=== PATIENT | female | born 1995 | race Hispanic/Latino ===

== ENCOUNTER 2020-08-31 08:46 | Observation (INO) | payer OTHER ==
[2020-08-31 09:44] LABS: Absolute Lymphocytes (CBC) 1.9 K/uL (0.7-4.9); Basophils % 0.2 % (0-1.3); Hematocrit 37.3 % (36.0-45.0); Lymphocytes % 13.7 % (15.3-44.8); MPV 9.1 fL (7.6-11.3); RBC Red Blood Cell Count 4.64 M/uL (3.86-4.86)
[2020-08-31] MEDS ORDERED: NA CHLORIDE 0.9% 1,000 ML ONE (09:53)
[2020-08-31] MEDS ORDERED: ONDANSETRON 4 MG/2 ML VIAL ONE ×2 (09:53→13:08)
[2020-08-31] MEDS ORDERED: DICYCLOMINE HCL 20 MG/2 ML AMP IM ONE (09:53)
[2020-08-31] MEDS ORDERED: DIPHENHYDRAMINE 50 MG/ML VIAL ONE (09:53)
[2020-08-31 09:59] LABS: Urine Blood TRACE (NEG); Urine Glucose NEGATIVE (NEG); Urine Protein NEGATIVE (NEG); Urine Specific Gravity >1.030 (1.005-1.030)
--- NOTE | 2020-08-31 10:15 | RAD REPORT ---
EXAM DESCRIPTION: CT - Abdomen Pelvis W Contrast - 08/31/2020 10:00 am CLINICAL HISTORY: Abdominal pain COMPARISON: none. TECHNIQUE: Computed axial tomography of the abdomen pelvis was obtained. 100 cc Isovue-300 was admin istered intravenously. Oral contrast was not requested which limits evaluation of bowel. All CT scans are performed using dose optimization technique as appropriate and may include automated exposure control or mA/KV adjustment according to patient size. FINDINGS: The liver, spleen, pancreas, adrenal and kidneys appear unremarkable. There is no evidence of diverticulitis. 24 millimeter appendicolith. The appendix is dilated with stranding in the adjacent fat. The proximal appendix extends inferiorly and to the left towards midline. The distal appendix extends superiorly. Small amount of ascites IMPRESSION: Appendicitis
[2020-08-31 10:18] LABS: ALT/SGPT 26 U/L (12-78); AST/SGOT 14 U/L (15-37); Albumin 3.7 g/dL (3.4-5.0); Alkaline Phosphatase 81 U/L (45-117); BUN Blood Urea Nitrogen 7 mg/dL (7-18); Bicarbonate 28 mmol/L (21-32); Bilirubin Direct < 0.1 mg/dL (0-0.2); Bilirubin Total 0.4 mg/dL (0.2-1.0); Glucose Level 102 mg/dL (74-106); Lipase 55 U/L (73-393); Sodium Level 141 mmol/L (136-145)
--- NOTE | 2020-08-31 10:57 | ER ---
Nurse's Notes [facility] Name: Kavitha Haskins Age: 25 yrs Sex: Female : 1995 Arrival Date: 08/31/2020 Time: 08:49 Bed 19 Private MD: Diagnosis: Acute appendicitis Presentation: 08/31 09:03 Chief complaint: Patient states: Started having pain in her lower abdomen a couple days rb3 ago, but the pain increased last night. Coronavirus screen: At this time, the client does not indicate any symptoms associated with coronavirus-19. Ebola Screen: Patient denies travel to an Ebola-affected area in the 21 days before illness onset. Initial Sepsis Screen: Does the patient meet any 2 criteria? No. Patient's initial sepsis screen is negative. Does the patient have a suspected source of infection? No. Patient's initial sepsis screen is negative. Risk Assessment: Do you want to hurt yourself or someone else? Patient reports no desire to harm self or others. Onset of symptoms was August 29, 2020. 09:03 Method Of Arrival: Ambulatory rb3 09:03 Acuity: DAREK 3 rb3 Triage Assessment: 09:03 General: Appears in no apparent distress. comfortable, Behavior is calm, cooperative. rb3 Pain: Complains of pain in suprapubic area, right lower quadrant and left lower quadrant Pain currently is 7 out of 10 on a pain scale. Pain began last night. Neuro: Level of Consciousness is awake, alert, obeys commands, Oriented to person, place, time, situation. Cardiovascular: Capillary refill < 3 seconds. Respiratory: Airway is patent Respiratory effort is even, unlabored, Respiratory pattern is regular, symmetrical. : No signs and/or symptoms were reported regarding the genitourinary system. Derm: Skin is pink, warm \T\ dry. 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 reports menstral cycle is irregular rb3 Historical: - Allergies: 09:03 No Known Allergies; rb3 - Home Meds: 09:03 None [Active]; rb3 - PMHx: 09:03 None; rb3 - PSHx: 09:03 oral-wisdom teeth extracted; rb3 - Immunization history:: Adult Immunizations up to date. - Social history:: Smoking status: Patient/guardian denies using. Screenin:03 Abuse screen: Denies threats or abuse. Nutritional screening: No deficits noted. rb3 Tuberculosis screening: No symptoms or risk factors identified. Fall Risk None identified. Assessment: 09:03 General: See triage assessment. rb3 09:03 GI: Bowel sounds present X 4 quads. Abd is soft Abdomen is tender to palpation in right rb3 lower quadrant. 09:44 Reassessment: Patient appears in no apparent distress at this time. No changes from rb3 previously documented assessment. 10:17 Reassessment: Patient appears in no apparent distress at this time. Patient and/or rb3 family updated on plan of care and expected duration. Pain level reassessed. Patient is alert, oriented x 3, equal unlabored respirations, skin warm/dry/pink. 11:15 Reassessment: Patient appears in no apparent distress at this time. Patient and/or rb3 family updated on plan of care and expected duration. Pain level reassessed. Patient is alert, oriented x 3, equal unlabored respirations, skin warm/dry/pink. Family at the bedside. 12:10 Reassessment: Pt. requested something for pain; provider notified. Received verbal rb3 order for Morphine 4 mg IVP x once. 100% read back. 12:22 Reassessment: Patient appears in no apparent distress at this time. Pt. is leaving for rb3 surgery. Vital Signs: 09:17 BP 121 / 78; Pulse 100; Resp 18; Temp 98.0(O); Pulse Ox 100% on R/A; Weight 124.74 kg; 5 Height 5 ft. 6 in. (167.64 cm); Pain 4/10; 10:17 BP 121 / 75; Pulse 97; Resp 17; Pulse Ox 100% ; rb3 11:17 BP 108 / 70; Pulse 92; Resp 16; Pulse Ox 99% ; rb3 12:15 BP 127 / 86; Pulse 89; Resp 17; Pulse Ox 100% ; rb3 09:17 Body Mass Index 44.39 (124.74 kg, 167.64 cm) [facility] ED Course: 08:49 Patient arrived in ED. ag5 08:55 Ramakrishna Grewal PA is PHCP. cp 08:55 Garry Vargas MD is Attending Physician. cp 09:03 Arm band placed on right wrist. rb3 09:20 Augustine, Brandi, RN is Primary Nurse. iw 09:20 Patient has correct armband on for positive identification. Placed in gown. Bed in low mh5 position. Call light in reach. Side rails up X 1. Adult w/ patient. Warm blanket given. Pulse ox on. NIBP on. 09:21 Urine --Ancillary (enter results) Sent. mh5 09:21 Urine Dipstick--Ancillary (enter results) Sent. mh5 09:35 Inserted saline lock: 20 gauge in left antecubital area, using aseptic technique. iw ,using aseptic technique. inserted by student and instructor. Blood collected. 09:56 Triage completed. rb3 10:00 CT Abd/Pelvis - IV Contrast Only In Process Unspecified. EDMS 10:56 Paras Berry MD is Hospitalizing Provider. cp 12:23 No provider procedures requiring assistance completed. Patient admitted, IV remains in rb3 place. Administered Medications: 09:53 Drug: Bentyl 20 mg Route: IM; Site: right gluteus; rb3 10:17 Follow up: Response: No adverse reaction rb3 09:53 Drug: Zofran (Ondansetron) 4 mg Route: IVP; Site: right antecubital; rb3 10:17 Follow up: Response: No adverse reaction; Nausea is decreased rb3 09:53 Drug: Benadryl 12.5 mg Route: IM; Site: right deltoid; rb3 10:17 Follow up: Response: No adverse reaction rb3 09:54 Drug: NS 0.9% 1000 ml Route: IV; Rate: 1 bolus; Site: right antecubital; rb3 12:02 Follow up: IV Status: Completed infusion rb3 11:08 Drug: Zosyn 3.375 grams Route: IVPB; Infused Over: 60 mins; Site: right antecubital; rb3 12:16 Drug: morphine 4 mg Route: IVP; Site: right antecubital; rb3 12:22 Follow up: Response: No adverse reaction rb3 Outcome: 10:57 Decision to Hospitalize by Provider. cp 12:23 Admitted to OR accompanied by nurse, family with patient, via wheelchair, with chart. rb3 12:23 Condition: stable 12:23 Instructed on the need for admit. 12:24 Patient left the ED. rb3 Signatures: Dispatcher [employer] EDMS Brandi Bradshaw, RN RN Ramakrishna uZrita PA PA cp Martinez, Maria 5 Felicita Carrasco 5 Leslie Funes, FRANCESCO RN rb3 Corrections: (The following items were deleted from the chart) 11:16 09:53 Benadryl 12.5 mg IM in right deltoid rb3 rb3 11:16 11:15 BP 118 / 77; Pulse 87 bpm; Resp 17 bpm; Pulse Ox 100% rb3 rb3
--- NOTE | 2020-08-31 10:58 | EDPHYS ---
Physician Documentation [facility] Name: Kavitha Haskins Age: 25 yrs Sex: Female : 1995 Arrival Date: 08/31/2020 Time: 08:49 Bed 19 Private MD: ED Physician Garry Vargas HPI: 08/31 09:05 This 25 yrs old Female presents to ER via Ambulatory with complaints of cp Abdominal Pain. 09:05 The patient presents with abdominal pain in the lower abdomen. Onset: The cp symptoms/episode began/occurred 2 day(s) ago. The symptoms do not radiate. Associated signs and symptoms: Pertinent negatives: blood in stools, constipation, diarrhea, dysuria, fever, vaginal discharge, vomiting. Severity of pain: in the emergency department the pain is unchanged despite home interventions. 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 reports menstral cycle is irregular rb3 Historical: - Allergies: 09:03 No Known Allergies; rb3 - Home Meds: 09:03 None [Active]; rb3 - PMHx: 09:03 None; rb3 - PSHx: 09:03 oral-wisdom teeth extracted; rb3 - Immunization history:: Adult Immunizations up to date. - Social history:: Smoking status: Patient/guardian denies using. ROS: 09:10 Constitutional: Negative for body aches, chills, fever, poor PO intake. cp 09:10 Eyes: Negative for injury, pain, redness, and discharge. cp 09:10 ENT: Negative for ear pain, sore throat, difficulty swallowing, difficulty handling secretions. 09:10 Cardiovascular: Negative for chest pain, palpitations. 09:10 Respiratory: Negative for cough, shortness of breath, wheezing. 09:10 Abdomen/GI: Positive for abdominal pain, Negative for vomiting, diarrhea, constipation, black/tarry stool, rectal bleeding. 09:10 Back: Negative for radiated pain. 09:10 : Negative for urinary symptoms, vaginal bleeding, vaginal discharge. 09:10 All other systems are negative. Exam: 09:15 Constitutional: The patient appears in no acute distress, alert, awake, non-toxic, well cp developed, well nourished, obese. 09:15 Head/Face: Normocephalic, atraumatic. cp 09:15 Eyes: Periorbital structures: appear normal, Conjunctiva: normal, no exudate, no injection, Sclera: no appreciated abnormality, Lids and lashes: appear normal, bilaterally. 09:15 ENT: External ear(s): are unremarkable, Nose: is normal, Posterior pharynx: Airway: no evidence of obstruction, patent. 09:15 Chest/axilla: Inspection: normal, Palpation: is normal, no crepitus, no tenderness. 09:15 Cardiovascular: Rate: tachycardic, Rhythm: regular. 09:15 Respiratory: the patient does not display signs of respiratory distress, Respirations: normal, no use of accessory muscles, no retractions, labored breathing, is not present, Breath sounds: are clear throughout, no decreased breath sounds. 09:15 Abdomen/GI: Inspection: abdomen appears normal, Bowel sounds: active, all quadrants, Palpation: soft, in all quadrants, moderate abdominal tenderness, in the suprapubic area and right lower quadrant, rebound tenderness, is not appreciated, voluntary guarding, is elicited in the right lower quadrant. 09:15 Back: pain, is absent, ROM is normal. Vital Signs: 09:17 BP 121 / 78; Pulse 100; Resp 18; Temp 98.0(O); Pulse Ox 100% on R/A; Weight 124.74 kg; mh5 Height 5 ft. 6 in. (167.64 cm); Pain 4/10; 10:17 BP 121 / 75; Pulse 97; Resp 17; Pulse Ox 100% ; rb3 11:17 BP 108 / 70; Pulse 92; Resp 16; Pulse Ox 99% ; rb3 12:15 BP 127 / 86; Pulse 89; Resp 17; Pulse Ox 100% ; rb3 09:17 Body Mass Index 44.39 (124.74 kg, 167.64 cm) [facility] MDM: 09:02 Patient medically screened. cp 10:00 Differential diagnosis: appendicitis, cholecystitis, Cholelithiasis, Ectopic , cp gastritis, non-specific abd pain, Ovarian Torsion, Pelvic Inflammatory Disease, Pyelonephritis, Ureterolithiasis, urinary tract infection. 10:40 Data reviewed: vital signs, nurses notes, lab test result(s), radiologic studies, CT cp scan, and as a result, I will admit patient. 10:40 Counseling: I had a detailed discussion with the patient and/or guardian regarding: the cp historical points, exam findings, and any diagnostic results supporting the discharge/admit diagnosis, lab results, radiology results, the need for further work-up and treatment in the hospital. 11:00 Physician consultation: Paras Berry MD was called at 10:55, was contacted at 10:55, regarding admission, to the operating room, patient's condition. 08/31 09:17 Order name: Urine Dipstick--Ancillary (enter results); Complete Time: 10:35 em1 08/31 10:35 Interpretation: Normal except: UBLD TRACE; UESTR TRACE. 08/31 09:17 Order name: Urine --Ancillary (enter results); Complete Time: 10:35 em1 08/31 09:19 Order name: Basic Metabolic Panel; Complete Time: 10:35 08/31 09:19 Order name: CBC with Diff; Complete Time: 10:35 08/31 10:35 Interpretation: Normal except: WBC 13.6; HELEN% 80.7; LYM% 13.7; NEUT A 11.0. 08/31 09:19 Order name: Hepatic Function; Complete Time: 10:35 cp 08/31 09:19 Order name: Lipase; Complete Time: 10:35 08/31 10:36 Interpretation: Reviewed. 08/31 09:19 Order name: CT Abd/Pelvis - IV Contrast Only; Complete Time: 10:35 08/31 10:41 Order name: CREATININE WHOLE BLOOD; Complete Time: 10:56 EDMS 08/31 09:02 Order name: Urine Dipstick-Ancillary (obtain specimen); Complete Time: 09:16 cp 08/31 09:02 Order name: Urine Test (obtain specimen); Complete Time: 09:16 cp 08/31 09:19 Order name: IV Saline Lock; Complete Time: 09:54 cp 08/31 09:19 Order name: Labs collected and sent; Complete Time: 09:54 cp 08/31 10:40 Order name: NPO; Complete Time: 11:14 cp Administered Medications: 09:53 Drug: Bentyl 20 mg Route: IM; Site: right gluteus; rb3 10:17 Follow up: Response: No adverse reaction rb3 09:53 Drug: Zofran (Ondansetron) 4 mg Route: IVP; Site: right antecubital; rb3 10:17 Follow up: Response: No adverse reaction; Nausea is decreased rb3 09:53 Drug: Benadryl 12.5 mg Route: IM; Site: right deltoid; rb3 10:17 Follow up: Response: No adverse reaction rb3 09:54 Drug: NS 0.9% 1000 ml Route: IV; Rate: 1 bolus; Site: right antecubital; rb3 12:02 Follow up: IV Status: Completed infusion rb3 11:08 Drug: Zosyn 3.375 grams Route: IVPB; Infused Over: 60 mins; Site: right antecubital; rb3 12:16 Drug: morphine 4 mg Route: IVP; Site: right antecubital; rb3 12:22 Follow up: Response: No adverse reaction rb3 Disposition: 09/01 07:12 Co-signature as Attending Physician, Garry Vargas MD I agree with the assessment and kdr plan of care. Disposition: 08/31/20 10:57 Hospitalization ordered by Paras Berry for Observation. Preliminary diagnosis is Acute appendicitis. - Bed requested for Operating Room. - Status is Observation. rb3 - Condition is Stable. - Problem is new. - Symptoms have improved. Signatures: Dispatcher [employer] EDMS Garry Vargas MD MD kdr Ramakrishna Grewal PA PA cp Barber, Rebecca RN RN rb3 Corrections: (The following items were deleted from the chart) 08/31 12:24 10:57 Hospitalization Ordered by Paras Berry MD for Observation. Preliminary rb3 diagnosis is Acute appendicitis. Bed requested for Operating Room. Status is Observation. Condition is Stable. Problem is new. Symptoms have improved. cp
[2020-08-31] MEDS ORDERED: PIPER/TAZO/NS 3.375gm 3.375 GM/100 ML BAG ONE (11:09)
[2020-08-31] MEDS ORDERED: MORPHINE 4 MG/ML SYR ONE (12:22)
[2020-08-31] MEDS ORDERED: Ringers Lactate 1,000 ML IV ONE (12:45)
[2020-08-31] MEDS ORDERED: LIDOCAINE 1% MPF 5 ML VIAL ONE (12:48)
[2020-08-31] MEDS ORDERED: ROCURONIUM 50 MG/5 ML VIAL IV ONE (12:48)
[2020-08-31] MEDS ORDERED: MIDAZOLAM HCL 2 MG/2 ML INJ ONE (12:48)
[2020-08-31] MEDS ORDERED: propofoL 200 MG/20 ML VIAL IV ONE (12:48)
[2020-08-31] MEDS ORDERED: FENTANYL CITR 100 MCG/2 ML ONE ×2 (12:48→13:27)
[2020-08-31] MEDS ORDERED: SUCCINYLCHOLINE 20 MG/ML (10 ML) IV ONE (12:58)
[2020-08-31] MEDS ORDERED: dexAMETHasone 4 MG/ML VIAL ONE (13:08)
[2020-08-31] MEDS ORDERED: KETOROLAC 30 MG/ML INJ ONE (13:08)
[2020-08-31] MEDS ORDERED: GLYCOPYRROLATE 0.2 MG/ML SYR ONE (13:27)
[2020-08-31] MEDS ORDERED: NEOSTIGMINE 1 MG/ML -5 ML ONE (13:27)
[2020-08-31] MEDS ORDERED: SODIUM CHLORIDE 0.9% 10ML INJ IV PRN (13:37)
[2020-08-31] MEDS ORDERED: HYDROCODONE/APAP 7.5/325 MG TAB PO PRN (13:37)
[2020-08-31] MEDS ORDERED: ONDANSETRON 4 MG/2 ML VIAL IV PRN (13:37)
--- NOTE | 2020-08-31 13:55 | P.BOP ---
Preoperative diagnosis: acute appendicititis, peritonitis Postoperative diagnosis: same Primary procedure: Laparoscopic appendectomy Supervisor Furnace Process: Sherley Bland (Pete) Estimated blood loss: <10cc Specimen: doe Findings: as above Anesthesia: General Complications: None Transferred to: Recovery Room Condition: Good
--- NOTE | 2020-08-31 14:18 | HP ---
Date of Admission: 08/31/2020 Diagnosis: Peritonitis, acute right lower quadrant pain. History Of Present Illness: This is the case of a 25-year-old patient with 2 days of periumbilical r ight upper quadrant pain, today got worse to the point that she came to the ER with nausea, vomiting. No dysuria, hematuria, hematochezia, melena. No recent traveling out of the country. No family me mber sick at home. Review of Systems: No shortness of breath. No chest pain. No fever. Ten points otherwise unremarkable. Past Medical History: Morbid obesity. Allergies: NONE. Past Surgical History: Includes wisdom teeth removal 2 weeks ago. Medications: None. Physical Examination: General: The patient is awake, alert. HEENT: Pupils are equal and reactive. Anicteric. Neck: Supple. Chest: Clear. Abdomen: Periumbilical right lower quadrant tenderness with Rovsing sign and psoas sign positive. P eritonitis present. Breasts: Deferred. Rectal: Deferred. Pelvic: Deferred. Extremities: Good capillary refill. Neurologic: Cranial nerves 2 through 12 grossly within normal limits. Laboratory Data: WBC count 13.6, hemoglobin of 12.6, potassium is 4.0. CAT scan of the abdomen and pelvis interpreted by Dr. Damon as acute appendicitis. Assessment And Plan: This is the case of a 25-year-old patient with acute appendicitis. Benefits, a lternatives, and risks of laparoscopic possible open appendectomy were fully explained, which include , but not limited to infection, bleeding, damage to adjacent structures, anesthesia complication, abs cess, hematoma, [place], and even . She also understands this may not relieve symptoms. She might n eed more than one surgical intervention. She states she has weakness and she is refusing any surgica l intervention. She understands the risks of dying without any blood transfusion if needed. She is very secured about her beliefs. She signed the consent and the OR was emergently called. SANTIAGO/IVAN Voice ID: [id number]
--- NOTE | 2020-08-31 14:48 | OP ---
Date of Procedure: 08/31/2020 Surgeon: Paras Berry MD Preoperative Diagnoses: Acute appendicitis, obesity, peritonitis. Postoperative Diagnoses: Acute appendicitis, obesity, peritonitis. Procedure: Laparoscopic appendectomy. Anesthesia: General plus local. Indications: This is the case of a 25-year-old patient, comes to us with acute appendicitis. Benefi ts, alternatives, and risks of laparoscopic possible open appendectomy fully explained which include, but not limited to infection, bleeding, damage to adjacent structures, anesthesia complications, MD, and even . She also understands this may not relieve symptoms. She might need more than one s urgical intervention. She understood, signed a consent. OR was immediately called. Procedure In Detail: The patient was brought to the operating room and placed supine position. Anes thesia was done without complication. Abdominal area was prepped and draped in a sterile fashion. L ocal anesthesia was applied followed by sharp incision of the skin in the infraumbilical region. Inc ision was carried down to fascia, which was opened under direct vision. Peritoneum was encountered, opened under direct vision. Vicryl #1 placed inside the fascia. Dee trocar was carefully introdu kate. No bleeding was obtained. I placed 2 more trocars 5 mm, each one of them in the suprapubic and left lower quadrant under direct visualization. This allowed me to place the patient in Trendelenbu rg position right side up and we visualized the area of the appendix to be inflamed. The base of the appendix seemed to be spared from the inflammation, so we created a window in the base of the append ix, transected that with Endo MATIAS 45 mm 3.5 and the mesoappendix with an Endo MATIAS 45 mm 2.5 x 2. Fur ther hemostasis was obtained with the help of hemoclips 5 mm. Appendix was removed from abdominal ca vity using EndoCatch through the umbilical incision. The area was profusely irrigated and then sucti oned. We checked for any bleeding or any bowel leak and none was found. So at that moment, I procee ded to remove the trocars under direct vision. Deflated the pneumoperitoneum. Closed the fascia wit h #1 Vicryl. Irrigated subcutaneous tissue, closed with 3-0 chromic and skin in a subcuticular fashi on with 3-0 chromic and Steri-Strips on top. Sponge count, instrument counts were correct. The sherman ent tolerated the procedure well. The patient was sent to recovery in stable condition. SANTIAGO/MODMichael Voice ID: [id number] Report ID: [id number]
[2020-08-31 15:11] VITALS: BMI 44.4
[2020-08-31] MEDS: NA CHLORIDE 0.9% 1,000 ML IV SCH (15:12)
[2020-08-31] MEDS: MORPHINE 2 MG/ML SYR IV PRN ×2 (17:29→20:38)
[2020-08-31] MEDS ORDERED: CEFOXITIN/SWI 1gm 1 GM/10 ML SYR IVP SCH (18:00)
[2020-08-31] MEDS: CEFOXITIN/SWI 1gm 1 GM/10 ML SYR IVP SCH (18:17)
[2020-09-01] MEDS: NA CHLORIDE 0.9% 1,000 ML IV SCH ×2 (00:50→09:55)
[2020-09-01] MEDS: MORPHINE 2 MG/ML SYR IV PRN ×4 (00:51→14:19)
[2020-09-01] MEDS: CEFOXITIN/SWI 1gm 1 GM/10 ML SYR IVP SCH ×2 (05:57)
[2020-09-01 06:11] LABS: Basophils % 0.1 % (0-1.3); Hematocrit 30.9 % (36.0-45.0); Lymphocytes % 7.1 % (15.3-44.8); MPV 9.1 fL (7.6-11.3); RBC Red Blood Cell Count 3.86 M/uL (3.86-4.86)
[2020-09-01 06:29] LABS: BUN Blood Urea Nitrogen 7 mg/dL (7-18); Bicarbonate 25 mmol/L (21-32); Glucose Level 110 mg/dL (74-106); Potassium 3.3 mmol/L (3.5-5.1); Sodium Level 139 mmol/L (136-145)
[2020-09-01] MEDS ORDERED: PANTOPRAZOLE 40 MG INJ IVP SCH (09:00)
[2020-09-01 10:06] LABS: Blood Morphology Comment NOT SEEN (NOT SEEN); Platelet Estimate ADEQ
--- NOTE | 2020-09-01 13:58 | P.DS ---
Admission Date: 08/31/20 Discharge Date: 09/01/20 Disposition: ROUTINE DISCHARGE Discharge Condition: GOOD Vital Signs/Physical Exam: Temp Pulse Resp BP Pulse Ox 97.2 F 93 H 16 101/61 98 09/01/20 08:00 09/01/20 08:00 09/01/20 12:17 09/01/20 08:00 09/01/20 12:17 General: Alert, Oriented x3, Cooperative HEENT: PERRLA, EOMI Neck: Supple Respiratory: Normal air movement Cardiovascular: No edema, Normal pulses Gastrointestinal: Soft and benign Musculoskeletal: No swelling, No erythema, No tenderness, No warmth Integumentary: No rashes, No breakdown, No erythema, No warmth, No cyanosis Neurological: Normal speech Laboratory Data at Discharge: WBC 14.1 K/uL (4.3-10.9) H 09/01/20 05:50 Hgb 10.4 g/dL (12.0-15.0) L 09/01/20 05:50 Hct 30.9 % (36.0-45.0) L D 09/01/20 05:50 Plt Count 196 K/uL (152-406) D 09/01/20 05:50 Sodium 139 mmol/L (136-145) 09/01/20 05:50 Potassium 3.3 mmol/L (3.5-5.1) L 09/01/20 05:50 BUN 7 mg/dL (7-18) 09/01/20 05:50 Creatinine 0.62 mg/dL (0.55-1.3) 09/01/20 05:50 Glucose 110 mg/dL (74-106) H 09/01/20 05:50 Total Bilirubin 0.4 mg/dL (0.2-1.0) 08/31/20 09:35 AST 14 U/L (15-37) L 08/31/20 09:35 ALT 26 U/L (12-78) 08/31/20 09:35 Alkaline Phosphatase 81 U/L (45-117) 08/31/20 09:35 Lipase 55 U/L (73-393) L 08/31/20 09:35 Home Medications: Vitamin B Complex [Vitamin B Complex*] 1 tab PO DAILY 08/31/20 Patient Discharge Instructions: keep area dry for 24h then may shower. Keep sterile strips intact. Diet: AHA Activity: No lifting more than 10 lbs Followup: Unknown,U [Primary Care Provider] - Paras Berry MD [ACTIVE - CAN ADMIT] - 1 Week
[2020-09-01 14:08] VITALS: O2SAT 98
[2020-09-01 14:30] VITALS: BP 119/67; TEMP 98.4
== END 2020-09-01 15:56 | disposition home or self-care (01) ==
LOC: ER 08:46 → ERHOLD 13:40 → 2ND 14:04
PROVIDERS: ADMIT Surgery; ATTEND Surgery
PROC: 0DTJ4ZZ Resection of Appendix, Percutaneous Endoscopic Approach (ICD-10-PCS; principal; 2020-08-31 12:30)
DX: K35.30 Acute appendicitis with localized peritonitis, without perforation or gangrene (principal); E66.01 Morbid (severe) obesity due to excess calories; Z68.41 Body mass index [BMI] 40.0-44.9, adult; Z20.828 Contact with and (suspected) exposure to other viral communicable diseases
CPT/HCPCS: 96361; 85025 ×2; 80048 ×2; 36415 ×2; 81025; 82565; 80076; 88304; 81003; 83690; 74177; 94010; 96375; 96372; 96374; 99285; 44970; U0002; Q9967; J2704; J1100; J0330; J0500; J1200; C9113; J2250; J3010 ×2; J2543; J2270 ×6; J2710; J7120; J7030 ×4; J2405 ×3; G0378 ×3